=== PATIENT | female | born 1935 | race Two or more races ===

== ENCOUNTER 2024-03-24 21:55 | Inpatient (IN) | payer OTHER ==
[~2024-03-24] VITALS: Ht 157.5 cm; Wt 59.0 kg
[2024-03-24] MEDS ORDERED: GLUMETZA500 MG (22:06)
[2024-03-24] MEDS ORDERED: LOSARTAN POTASS50 MG (22:06)
--- NOTE | 2024-03-24 22:06 | NUR ---
SE RECIBE PTE ALERTA Y ORIENTADA X3 EN AMBULANCIA. LA MISMA VIENE DE [facility] A[facility] POR DR BEY POR FRACTURA DE CADERA IZQUIERDA. SE MIDE SV Y SE UBICA
[2024-03-25] MEDS ORDERED: 0.9 % SODIUM CHLORIDE 1,000 ML IV ONE (00:45)
--- NOTE | 2024-03-25 01:29 | NUR ---
PTE FEMENINA EVALUADA POR . SE ORIENTA SOBRE ORDENES DE [place] REFIERE COMRPENDER. SE COLECTAN MUESTRAS DE LABORATORIOS, BAJO MEDIDAS ASEPTICAS. SE OBSERVA PTE CON VENOPUNCION DE AMBULANCIA, PATENTE KIMBERLY DE EDEMA Y ERITEMA. SE ADMINISTRAN LIQUIDOS INTRAVENOSOS, TROY ORDEN MEDICA. SE NOTIFICA A RADIOLOGIA XRAY PEDNIENTE. PTE CON SONDA URINARIA PROVENINETE DE [facility] LILIANA ELLIOTT.
[2024-03-25 01:36] LABS: PARTIAL THROMBOPLASTIN TIME 23.5 SECONDS (22.0-34.0); PROTHROMBIN TIME 10.9 SECONDS (9.0-11.5)
[2024-03-25 01:39] LABS: MEAN CELL VOLUME 84.8 fL (80.00-100.00); MEAN CORPUSCULAR HGB CONC 34.1 g/dl (32.0-36.0); PLATELET COUNT 272 K/uL (150-450); RED CELL DISTRIBUTION WIDTH 16.7 % (11.5-14.5)
[2024-03-25 01:44] LABS: HEMOGLOBIN 9.5 g/dL (12.0-15.00); MEAN CORPUSCULAR HEMOGLOBIN 28.7 pg (27.00-32.0)
[2024-03-25 01:53] LABS: URINE BACTERIA 272.9 uL (0.0-1933); URINE EPITHELIAL CELLS 6.9 uL (0.0-38.8); URINE RBC 39.3 uL (0.0-20.8); URINE WBC 23.7 uL (0.0-23.2)
[2024-03-25 01:55] LABS: ALBUMIN 3.2 gm/dL (3.4-5.0); BILIRUBIN TOTAL 0.75 mg/dL (0.3-1.2); CALCIUM 9.5 mg/dL (8.5-10.1); CREATININE SERUM 0.82 mg/dL (0.55-1.02); GFR 66.1; POTASSIUM 4.26 mEq/L (3.5-5.1); TOTAL PROTEIN 8.2 gm/dL (6.4-8.2)
[2024-03-25 01:57] LABS: PH,URINE 5.5 (5.0-8.0); URINE APPEARANCE Clear; URINE BILIRRUBIN Negative (NEGATIVE); URINE BLOOD Small; URINE COLOR Yellow; URINE GLUCOSE Negative (NEGATIVE); URINE KETONE Negative (NEGATIVE); URINE LEUKOCYTE Small; URINE NITRATE Negative; URINE PROTEIN Negative (NEGATIVE); URINE UROBILINOGEN 0.2 E.U./dl
[2024-03-25 01:59] LABS: URINE CAST 0.14 uL (0.0-1.40)
[2024-03-25] MEDS ORDERED: PLAVIX75 MG PO (02:41)
[2024-03-25] MEDS ORDERED: MEPERIDINE HCL/PF 25 MG/ML VIAL IM STA (07:44)
[2024-03-25] MEDS ORDERED: MEPERIDINE HCL/PF 25 MG/ML VIAL IM PRN (07:45)
--- NOTE | 2024-03-25 08:18 | NUR ---
SE RECIBE A PACIENT ALERTA Y ORIENTADA X3 EN CAMA A NIVEL DE PISO JUNTO CON BARRANDAS ELEVADAS. CANALIZADA CON #22 EN RT ARM BAJANDO 0.9NSS A 175ML/HR. PENDIENTE A CONSULTA MEDICA.
[2024-03-25] MEDS ORDERED: INSULIN LISPRO 1,000 UNIT/10 ML UNITS SUBCUTANEO PRN (12:15)
[2024-03-25] MEDS ORDERED: DEXTROSE 50 % IN WATER 0.5 G/ML DISP.SYRIN IV PRN (12:15)
[2024-03-25] MEDS ORDERED: ENALAPRILAT DIHYDRATE 1.25 MG/ML VIAL IV PRN (12:15)
[2024-03-25] MEDS ORDERED: 0.9 % SODIUM CHLORIDE 1,000 ML IV SCH (12:15)
[2024-03-25 17:00] VITALS: BP 170/75; O2SAT 99
[2024-03-25 19:00] VITALS: BP 154/88
[2024-03-26 01:00] VITALS: BP 158/69; O2SAT 95
[2024-03-26] MEDS ORDERED: ENOXAPARIN SODIUM 40 MG/0.4 ML SYRINGE SUBCUTANEO SCH (09:00)
[2024-03-26] MEDS ORDERED: MULTIVIT-MIN/IRON FUM/FOLIC AC 1 TAB TABLET PO NR (11:00)
[2024-03-26 12:35] VITALS: BP 165/78; O2SAT 98
[2024-03-26] MEDS ORDERED: AMINO ACIDS 1 EACH TABLET PO SCH (17:00)
[2024-03-26 18:19] VITALS: BP 139/62; O2SAT 100
[2024-03-27 00:35] VITALS: BP 118/65; O2SAT 100
[2024-03-27 08:10] LABS: MEAN CELL VOLUME 85.8 fL (80.00-100.00); MEAN CORPUSCULAR HGB CONC 34.4 g/dl (32.0-36.0); PLATELET COUNT 194 K/uL (150-450); RED BLOOD COUNT 2.58 M/uL (4.00-6.00); RED CELL DISTRIBUTION WIDTH 16.4 % (11.5-14.5)
[2024-03-27 08:18] VITALS: BP 135/60; O2SAT 100
[2024-03-27] MEDS ORDERED: ENOXAPARIN SODIUM 30 MG/0.3 ML SYRINGE SUBCUTANEO SCH (09:00)
[2024-03-27] MEDS ORDERED: MULTIVIT-MIN/IRON FUM/FOLIC AC 1 TAB TABLET PO SCH (09:00)
[2024-03-27 10:02] LABS: HEMATOCRIT 22.1 % (36.0-45.00); HEMOGLOBIN 7.6 g/dL (12.0-15.00); MEAN CORPUSCULAR HEMOGLOBIN 29.4 pg (27.00-32.0)
[2024-03-27] MEDS ORDERED: MEPERIDINE HCL/PF 25 MG/ML VIAL IM PRN (12:15)
[2024-03-27 16:07] VITALS: BP 139/61; O2SAT 100
[2024-03-27 23:51] VITALS: BP 114/73; O2SAT 100
[2024-03-28 08:35] VITALS: BP 154/67; O2SAT 100
[2024-03-28 16:08] VITALS: BP 157/75; O2SAT 99
[2024-03-28] MEDS ORDERED: ZOLPIDEM TARTRATE 10 MG TABLET PO SCH (21:00)
[2024-03-28] MEDS ORDERED: hydrALAZINE HCL 25 MG TABLET PO PRN (21:45)
[2024-03-28] MEDS ORDERED: hydrALAZINE HCL 20 MG VIAL IV PRN (23:00)
[2024-03-29 00:30] VITALS: BP 119/71; O2SAT 100
[2024-03-29 08:00] LABS: HEMATOCRIT 36.4 % (36.0-45.00); HEMOGLOBIN 12.2 g/dL (12.0-15.00); MEAN CELL VOLUME 86.2 fL (80.00-100.00); MEAN CORPUSCULAR HEMOGLOBIN 28.9 pg (27.00-32.0); MEAN CORPUSCULAR HGB CONC 33.5 g/dl (32.0-36.0); PLATELET COUNT 209 K/uL (150-450); RED BLOOD COUNT 4.22 M/uL (4.00-6.00); RED CELL DISTRIBUTION WIDTH 15.5 % (11.5-14.5)
[2024-03-29] MEDS ORDERED: hydrALAZINE HCL 25 MG TABLET PO SCH (09:00)
[2024-03-29 09:03] VITALS: BP 153/77; O2SAT 100
[2024-03-29 16:49] VITALS: BP 159/69; O2SAT 96
[2024-03-30] VITALS: BP 157/68; O2SAT 96
[2024-03-30] MEDS ORDERED: BUPIVACAINE HCL/MPF 0.5% 30ML VIAL ONE (07:36)
[2024-03-30] MEDS ORDERED: POVIDONE-IODINE 118 ML BOTT TOP ONE (07:37)
[2024-03-30] MEDS ORDERED: ISOPROPYL ALCOHOL 30 ML OUNCE TOP ONE (07:37)
[2024-03-30] MEDS ORDERED: LIDOCAINE HCL 1%/EPINEPHRINE 20ML VIAL IJ ONE (07:37)
[2024-03-30] MEDS ORDERED: VANCOMYCIN HCL 1,000 MG VIAL ONE ×2 (07:43→19:49)
[2024-03-30] MEDS ORDERED: ONDANSETRON 4 MG TAB.RAPDIS PO PRN (10:15)
[2024-03-30] MEDS ORDERED: ONDANSETRON HCL 2 MG/ML VIAL IV PRN (10:15)
[2024-03-30] MEDS ORDERED: SODIUM CHLORIDE 0.45 % 1,000 ML IV SCH (10:15)
[2024-03-30] MEDS ORDERED: PANTOPRAZOLE SODIUM 40 MG TABLET.DR PO NR (11:00)
[2024-03-30] MEDS ORDERED: MORPHINE SULFATE 4 MG/ML VIAL IV ONE (11:00)
[2024-03-30] MEDS ORDERED: MEPERIDINE HCL/PF 25 MG/ML VIAL IM PRN (14:00)
[2024-03-30 16:00] VITALS: BP 133/64; O2SAT 100
[2024-03-30] MEDS ORDERED: VANCOMYCIN HCL 1,000 MG VIAL IV SCH (21:00)
[2024-03-31 01:28] VITALS: BP 149/71; O2SAT 97
[2024-03-31] MEDS ORDERED: VANCOMYCIN HCL 1,000 MG VIAL ONE ×2 (07:58→16:49)
[2024-03-31 08:34] VITALS: BP 117/59; O2SAT 100
[2024-03-31] MEDS ORDERED: RIVAROXABAN 10 MG TAB PO SCH (09:00)
[2024-03-31] MEDS ORDERED: PANTOPRAZOLE SODIUM 40 MG TABLET.DR PO SCH (09:00)
[2024-03-31 09:51] LABS: HEMATOCRIT 28.6 % (36.0-45.00); MEAN CORPUSCULAR HGB CONC 34.3 g/dl (32.0-36.0); PLATELET COUNT 206 K/uL (150-450); RED BLOOD COUNT 3.35 M/uL (4.00-6.00); RED CELL DISTRIBUTION WIDTH 15.7 % (11.5-14.5)
[2024-03-31 10:21] LABS: HEMOGLOBIN 9.8 g/dL (12.0-15.00); MEAN CELL VOLUME 85.4 fL (80.00-100.00); MEAN CORPUSCULAR HEMOGLOBIN 29.2 pg (27.00-32.0)
[2024-03-31] MEDS ORDERED: LACTULOSE 20 G/30 ML BLIST.PACK PO STA (11:32)
[2024-03-31] MEDS ORDERED: DOCUSATE SODIUM 100MG CAP PO SCH (12:58)
[2024-03-31 16:00] VITALS: BP 164/77; O2SAT 98
[2024-03-31] MEDS ORDERED: LACTULOSE 20 G/30 ML BLIST.PACK PO SCH (21:00)
[2024-04-01] VITALS: BP 131/68; O2SAT 99
[2024-04-01 06:20] LABS: HEMATOCRIT 27.8 % (36.0-45.00); HEMOGLOBIN 9.5 g/dL (12.0-15.00); MEAN CELL VOLUME 86.4 fL (80.00-100.00); MEAN CORPUSCULAR HEMOGLOBIN 29.6 pg (27.00-32.0); MEAN CORPUSCULAR HGB CONC 34.2 g/dl (32.0-36.0); PLATELET COUNT 201 K/uL (150-450); RED BLOOD COUNT 3.22 M/uL (4.00-6.00); RED CELL DISTRIBUTION WIDTH 15.4 % (11.5-14.5)
[2024-04-01 08:00] VITALS: BP 129/72
[2024-04-01] MEDS ORDERED: VANCOMYCIN HCL 1,000 MG VIAL ONE ×2 (08:05→14:15)
[2024-04-01] MEDS ORDERED: NA PHOS,M-B/NA PHOS,DI-BA 1 BOTTLE ENEMA RECTAL NR (12:00)
[2024-04-01 16:00] VITALS: BP 148/76; O2SAT 100
== END 2024-04-01 21:25 | DRG 482 ==
LOC: ER 21:55 → SEC-K 03-25 13:50 → SURG 03-25 13:50
PROVIDERS: General Practice; Internal Medicine; ADMIT Orthopaedic Surgery; ATTEND Orthopaedic Surgery
PROC: B24BZZZ Ultrasonography of Heart with Aorta (ICD-10-PCS; 2024-03-25)
PROC: 0MBM0ZZ Excision of Left Hip Bursa and Ligament, Open Approach (ICD-10-PCS; 2024-03-25)
PROC: 30233N1 Transfusion of Nonautologous Red Blood Cells into Peripheral Vein, Percutaneous Approach (ICD-10-PCS; 2024-03-27)
PROC: 0QS706Z Reposition Left Upper Femur with Intramedullary Internal Fixation Device, Open Approach (ICD-10-PCS; principal; 2024-03-30 07:00)
DX: S72.142A Displaced intertrochanteric fracture of left femur, initial encounter for closed fracture (principal); W19.XXXA Unspecified fall, initial encounter; Y93.9 Activity, unspecified; Y92.9 Unspecified place or not applicable; D64.9 Anemia, unspecified; I35.0 Nonrheumatic aortic (valve) stenosis; I10 Essential (primary) hypertension; E11.9 Type 2 diabetes mellitus without complications; Z79.4 Long term (current) use of insulin; E78.5 Hyperlipidemia, unspecified

== ENCOUNTER 2024-04-28 12:03 | Outpatient (CLI) | payer OTHER ==
[~2024-04-28 12:03] MED LIST: GLUMETZA500 MG; LOSARTAN POTASS50 MG; PLAVIX75 MG PO
== END 2024-04-28 12:10 | disposition home or self-care (01) ==
LOC: RAD 12:03
PROVIDERS: ATTEND Orthopaedic Surgery
DX: M25.552 Pain in left hip (principal)